=== PATIENT | female | born 1985 | race Two or more races ===

== ENCOUNTER 2022-01-24 05:15 | Day surgery (SDC) | payer OTHER ==
[~2022-01-24] VITALS: Ht 167.6 cm; Wt 69.4 kg
[~2022-01-24 05:15] MED LIST: FLAGYL375 MG; MICRO-K10 MEQ; PREDNISONE10 MG; REMICADE
[2022-01-24] MEDS ORDERED: ULTRACET PO (12:33)
[2022-01-24] MEDS ORDERED: MUPIROCIN15 GM TOP (12:33)
[2022-01-24] MEDS ORDERED: AMOX1TAB5 PO (12:33)
== END 2022-01-24 17:20 | disposition home or self-care (01) ==
LOC: CIR.AMB 05:15
PROVIDERS: ATTEND Surgery
DX: L05.91 Pilonidal cyst without abscess (principal); T81.89XA Other complications of procedures, not elsewhere classified, initial encounter; K50.90 Crohn's disease, unspecified, without complications; Z20.822 Contact with and (suspected) exposure to COVID-19; Z86.16 Personal history of COVID-19; K50.00 Crohn's disease of small intestine without complications